=== PATIENT | male | born 1950 | race Caucasian/White ===

== ENCOUNTER 2017-08-05 22:55 | Emergency (ER) | payer MEDICARE, OTHER ==
[~2017-08-05] VITALS: Ht 167.6 cm; Wt 70.3 kg
[2017-08-06 00:38] LABS: BASOPHIL % 0.6 % (0-2); RED CELL DISTRIBUTION WIDTH 13.3 % (11.5-14.5)
[2017-08-06 00:42] LABS: PLATELET COUNT 129 x10^3mcL (130-400)
[2017-08-06 00:47] LABS: UA SPECIFIC GRAVITY <=1.005 (1.005-1.035); microscopic required? YES; urine erythrocyte TRACE (NEGATIVE)
[2017-08-06 01:01] LABS: AMPHETAMINE QUAL UR NONE DETECTED (NEG <=1000)
[2017-08-06 01:09] LABS: ALKALINE PHOSPHATASE 80 U/L (46-116); ALT/SGPT 98 U/L (16-63); AST/SGOT 171 U/L (15-37); CALCIUM 8.5 mg/dL (8.5-10.1); CARBON DIOXIDE 23.9 mmol/L (21-32); CHLORIDE SERUM 85 mmol/L (98-107); CREATININE SERUM 1.2 mg/dL (0.7-1.3); GFR1 > 60 mL/min; GLUCOSE SERUM 110 mg/dL (74-106); TOTAL PROTEIN, SERUM 8.1 g/dL (6.4-8.2)
[2017-08-06 01:14] LABS: SODIUM SERUM 123 mmol/L (136-145)
[2017-08-06 04:17] VITALS: BP 158/74
== END 2017-08-06 04:17 ==
LOC: ED 22:55
PROVIDERS: Emergency Medicine
DX: K92.2 Gastrointestinal hemorrhage, unspecified (principal); E87.6 Hypokalemia; E87.1 Hypo-osmolality and hyponatremia; F10.129 Alcohol abuse with intoxication, unspecified; I10 Essential (primary) hypertension; E11.9 Type 2 diabetes mellitus without complications; Z88.0 Allergy status to penicillin
CPT/HCPCS: 83880; G0480; J3411; J3475; J3480; J3490; J7030

== ENCOUNTER 2019-02-23 11:42 | Inpatient (IN) | payer MEDICARE, OTHER ==
[~2019-02-23] VITALS: Ht 167.6 cm; Wt 66.2 kg
[2019-02-23 11:43] VITALS: Ht 167.6 cm; Wt 66.2 kg
[2019-02-23 12:37] LABS: microscopic required? NO
[2019-02-23 12:40] LABS: ALT/SGPT 21 U/L (16-63); AST/SGOT 14 U/L (15-37); BILIRUBIN TOTAL 0.78 mg/dL (0.20-1.00); CALCIUM 9.5 mg/dL (8.5-10.1); CARBON DIOXIDE 14.1 mmol/L (21-32); CHLORIDE SERUM 85 mmol/L (98-107); CREATININE SERUM 2.1 mg/dL (0.7-1.3); GFR1 34 mL/min; TOTAL PROTEIN, SERUM 6.9 g/dL (6.4-8.2)
[2019-02-23 12:41] LABS: ALKALINE PHOSPHATASE 76 U/L (46-116); LIPASE 502 IU/L (73-393); MAGNESIUM 1.8 mg/dL (1.8-2.4)
[2019-02-23 12:42] LABS: POTASSIUM SERUM 5.9 mmol/L (3.5-5.1); SODIUM SERUM 123 mmol/L (136-145)
[2019-02-23] MEDS ORDERED: NOR10 PO (12:45)
[2019-02-23] MEDS ORDERED: PROTONIX TR40 M1 PO (12:45)
[2019-02-23] MEDS ORDERED: ACAMPROSATE CA333 MG PO (12:46)
[2019-02-23 13:03] LABS: UA SPECIFIC GRAVITY <=1.005 (1.005-1.035); urine erythrocyte NEGATIVE (NEGATIVE)
[2019-02-23 13:54] LABS: GLUCOSE SERUM 892 mg/dL (74-106)
[2019-02-23 16:08] LABS: rbc morphology (normal/abnorm) ABNORMAL (NORMAL)
[2019-02-23 16:10] LABS: PLATELET COUNT 197 x10^3mcL (130-400)
[2019-02-23 16:12] LABS: BAND NEUTROPHIL 0 % (0-10); MONOCYTE 2 % (0-7); SEGMENTED NEUTROPHILS 97 % (37-75)
[2019-02-23 17:00] LABS: PHOSPHOROUS 5.4 mg/dL (2.5-4.9)
[2019-02-23 22:12] VITALS: BP 137/69
[2019-02-24] VITALS (7 sets, daily range): BP systolic 120–163; BP diastolic 44–80
[2019-02-24 05:37] LABS: BASOPHIL % 0.4 % (0-2); PLATELET COUNT 135 x10^3mcL (130-400)
[2019-02-24 05:45] LABS: CALCIUM 9.5 mg/dL (8.5-10.1); CARBON DIOXIDE 24.7 mmol/L (21-32); CREATININE SERUM 1.3 mg/dL (0.7-1.3); PHOSPHOROUS 3.2 mg/dL (2.5-4.9); POTASSIUM SERUM 3.7 mmol/L (3.5-5.1)
[2019-02-25 05:29] VITALS: BP 161/74
[2019-02-25 07:13] LABS: CALCIUM 8.6 mg/dL (8.5-10.1); CARBON DIOXIDE 22.3 mmol/L (21-32); CHLORIDE SERUM 105 mmol/L (98-107); CREATININE SERUM 1.1 mg/dL (0.7-1.3); GFR1 > 60 mL/min; GLUCOSE SERUM 277 mg/dL (74-106); POTASSIUM SERUM 3.8 mmol/L (3.5-5.1); SODIUM SERUM 140 mmol/L (136-145)
[2019-02-25 07:51] VITALS: BP 161/71
[2019-02-25 08:32] LABS: BASOPHIL % 0.1 % (0-2); PLATELET COUNT 130 x10^3mcL (130-400)
[2019-02-25 08:33] LABS: RED CELL DISTRIBUTION WIDTH 16.5 % (11.5-14.5)
[2019-02-25] MEDS ORDERED: PROPRANOLOL HCL20 MG PO (10:51)
[2019-02-25 11:46] VITALS: BP 150/67
[2019-02-25 12:08] VITALS: BP 150/67
[2019-02-25 12:10] VITALS: BP 150/67
[2019-02-25] MEDS ORDERED: LANTUS SOLOS100 U/M1 SQ (15:37)
[2019-02-25] MEDS ORDERED: GLUCOMETER (15:37)
[2019-02-25 15:58] VITALS: BP 101/69; BP 141/66
== END 2019-02-25 16:41 | disposition home or self-care (01) | DRG 432 ==
LOC: ED 11:42 → DU 15:49 → ED 15:49 → IC 15:49 → DU 02-24 11:50
PROVIDERS: Emergency Medicine; Internal Medicine Gastroenterology; ADMIT Family Medicine
PROC: 0DB78ZX Excision of Stomach, Pylorus, Via Natural or Artificial Opening Endoscopic, Diagnostic (ICD-10-PCS; principal; 2019-02-24 08:00)
PROC: 06L38CZ Occlusion of Esophageal Vein with Extraluminal Device, Via Natural or Artificial Opening Endoscopic (ICD-10-PCS; 2019-02-24 08:00)
DX: K70.30 Alcoholic cirrhosis of liver without ascites (principal); I85.11 Secondary esophageal varices with bleeding; N17.0 Acute kidney failure with tubular necrosis; F10.239 Alcohol dependence with withdrawal, unspecified; E87.1 Hypo-osmolality and hyponatremia; F10.27 Alcohol dependence with alcohol-induced persisting dementia; D62 Acute posthemorrhagic anemia; E44.0 Moderate protein-calorie malnutrition; E11.65 Type 2 diabetes mellitus with hyperglycemia; R56.9 Unspecified convulsions; I10 Essential (primary) hypertension; F12.10 Cannabis abuse, uncomplicated; E83.39 Other disorders of phosphorus metabolism; F91.9 Conduct disorder, unspecified; E87.5 Hyperkalemia; F10.20 Alcohol dependence, uncomplicated; T51.0X1A Toxic effect of ethanol, accidental (unintentional), initial encounter; F17.210 Nicotine dependence, cigarettes, uncomplicated; Y90.0 Blood alcohol level of less than 20 mg/100 ml; Z68.22 Body mass index [BMI] 22.0-22.9, adult; Z79.84 Long term (current) use of oral hypoglycemic drugs
CPT/HCPCS: 43235; 82962; 99406; G0480; J1200; J1610; J1815; J1940; J2060; J2250; J2310; J2354; J2405; J3010; J3490; J7030; J7050; P9016; Q0092